=== PATIENT | female | born 1955 | race Caucasian/White ===

== ENCOUNTER 2018-11-17 06:08 | Outpatient (CLI) | payer MEDICARE, MEDICAID ==
[2018-11-17 11:14] LABS: #Basophils 0.1 thou/uL (0.0-0.2); #Eosinphils 0.1 thou/uL (0.0-0.7); #Lymphocytes 1.6 thou/uL (1.20-3.40); #Monocytes 0.4 thou/uL (0.11-0.59); #Neutrophils 3.5 thou/uL (1.40-6.50); %Basophils 1.2 % (0.0-1.0); %Eosinophils 1.9 % (0.0-10.0); %Lymphocytes 28.3 % (21.0-51.0); %Monocytes 7.7 % (0.0-10.0); %Neutrophils 60.9 % (42.0-75.0); Hemoglobin 12.4 g/dL (12.0-16.0); Mean Corpuscular HGB CONC 33.2 g/dL (32.0-36.0); Mean Corpuscular Hemoglobin 34.4 pg (27.0-31.0); Mean Platelet Volume 6.7 fL (7.4-10.4); Platelet Count 233 thou/uL (130-400); RBC Distribution Width 11.7 % (11.5-14.5); White Blood Cell (WBC) Count 5.7 thou/uL (4.8-10.8)
[2018-11-17 11:43] LABS: Anion Gap 9 mmol/L (10-20); BUN (Urea Nitrogen) 7 mg/dL (9.8-20.1); Calc. Creatinine Clearance 0 mL/min (70-130); Calcium 8.8 mg/dL (7.8-10.44); Carbon Dioxide 26 mmol/L (23-31); Chloride 107 mmol/L (98-107); Estimated GFR-MDRD 75; Glucose 97 mg/dL (80-115); Potassium 4.1 mmol/L (3.5-5.1); Sodium 138 mmol/L (136-145)
[2018-11-17 12:04] LABS: PTT 28.2 SEC (22.9-36.1); Prothrombin Time 13.5 SEC (12.0-14.7)
== END 2018-11-17 06:09 | disposition home or self-care (01) ==
LOC: LABBT 06:08
PROVIDERS: ATTEND Surgery
DX: Z01.818 Encounter for other preprocedural examination (principal); M54.12 Radiculopathy, cervical region; M48.02 Spinal stenosis, cervical region
CPT/HCPCS: 80048; 85025; 85610; 85730; 93005; 93010

== ENCOUNTER 2018-11-24 05:40 | Day surgery (SDC) | payer MEDICARE, MEDICAID ==
[2018-11-24] MEDS ORDERED: Sodium Chloride 0.9% 10 ML ONE (06:24)
[2018-11-24] MEDS ORDERED: Thrombin 5000 UNITS/5 ML VIAL ONE (06:24)
[2018-11-24] MEDS ORDERED: CEFAZOLIN 2 GM/50 ML BAG ONE (06:25)
[2018-11-24] MEDS ORDERED: Midazolam HCl 2 mg/2 ml Vial ONE (07:13)
[2018-11-24] MEDS ORDERED: Fentanyl 100 MCG/2 ML VIAL ONE ×3 (07:13→10:21)
[2018-11-24] MEDS ORDERED: Milk Of Magnesia 30 ML UDCUP PO PRN (09:48)
[2018-11-24] MEDS ORDERED: Morphine 2 MG/ML SYRINGE SLOW IVP PRN (09:48)
[2018-11-24] MEDS ORDERED: Bisacodyl 10 MG SUPP PR PRN (09:48)
[2018-11-24] MEDS ORDERED: Fleet Enema 133 ML BOT PR PRN (09:48)
[2018-11-24] MEDS ORDERED: Mag-Al 1200 mg/1200 mg/30 ML UDCUP PO PRN (09:48)
[2018-11-24] MEDS ORDERED: Albuterol Sulfate 2.5 mg/3 ml Neb NEB PRN (09:55)
[2018-11-24] MEDS ORDERED: Lorazepam 1 MG TAB PO PRN (09:55)
[2018-11-24] MEDS ORDERED: CEFAZOLIN/Water 2 GM/20 ML SYRINGE SLOW IVP SCH (10:00)
[2018-11-24] MEDS: Morphine 4 MG/ML VIAL SLOW IVP PRN ×3 (11:34→18:31)
[2018-11-24 11:51] VITALS: BMI 18.3
--- NOTE | 2018-11-24 12:22 | OP ---
DATE OF PROCEDURE: 11/24/2018 OPERATING ROOM: OR 11. WOUND CLASSIFICATION: Type 1 wound. APPRISE COUNSELOR: Reza Powers PA-C PREPROCEDURE DIAGNOSIS: Cervical stenosis with neck and arm pain and cervical radiculopathy. POSTPROCEDURE DIAGNOSIS: Cervical stenosis with neck and arm pain and cervical radiculopathy. PROCEDURES PERFORMED: 1. Anterior C5-C6 and C6-C7 diskectomies for decompression of spinal cord and nerve roots. 2. Placement of interbody spacer following preparation of the endplates, C5-C6 and C6-C7, packed with local bone autograft obtained from same incision allograft at C5-C6 and C6-C7 for arthrodesis. 3. Anterior cervical plate and screw fixation C5, C6, and C7. 4. Use of operative microscope for microdissection. DESCRIPTION OF PROCEDURE: After informed consent was obtained from the patient, the patient was brought to OR 11. Appropriate patient pause and identification were carried out. She was placed under excellent general endotracheal anesthesia and positioned supine on the OR table, and all appropriate points were padded. The cervical spine was kept in neutral position. We identified the anterior C5, C6, and C7 segments and an incision from the right side that would allow for approach to the aforementioned segments. This region was sterilely cleansed, prepared, and draped. After appropriate patient pause and identification, the wound was then opened with a combination of sharp and monopolar and blunt dissection and proceeded lateral to the tracheoesophageal bundle medial to the right carotid sheath, identified the prevertebral layer of deep cervical fascia and the longus colli muscles were swept laterally. Retraction was placed, distraction at C5-C6 then occurred following localization. We then brought the microscope in for microdissection diskectomy at C5-C6 was performed with excellent decompression of the common dural tube and bilateral C6 nerve roots. We then released distraction following the placement of interbody spacer packed with graft for arthrodesis. We then turned our attention to distraction at C6-C7. Diskectomy at C6-C7 was performed with excellent decompression of the common dural tube and the C7 nerve roots. Copious irrigation occurred throughout and again maximizing hemostasis. We placed an interbody spacer in appropriate dimension, packed with graft for arthrodesis. The wound was then copiously irrigated and the microscope was removed in plate and screw fixation at C5, C6, and C7. Final tightening then occurred. Satisfied with our construct, we then placed a drain and the wound was then closed in anatomic layers. The patient then emerged from anesthesia. Job ID: [id number]
[2018-11-24] MEDS: HYDROcodone/Acetaminophen 10/325 mg Tablet PO PRN ×2 (12:59→21:05)
[2018-11-24] MEDS: Methocarbamol 500 MG TAB PO SCH ×3 (13:50→20:08)
[2018-11-24] MEDS ORDERED: CEFAZOLIN 2 GM in Sodium Chloride 0.9% 100 ML IVPB SCH (14:00)
[2018-11-24] MEDS: CEFAZOLIN 2 GM/50 ML-DEXTROSE 2 GM in Premix Bag 1 BAG IVPB SCH ×2 (14:50→22:04)
[2018-11-24] MEDS: traMADol HCl 50 MG TAB PO PRN (15:54)
[2018-11-24] MEDS: Sodium Chloride 0.9% 1,000 ML IV SCH (18:23)
[2018-11-24] MEDS ORDERED: Glycopyrrolate 0.2 MG/ML 5 ML SYRINGE ONE (19:06)
[2018-11-24] MEDS ORDERED: Ondansetron PF 4 MG/2 ML Vial ONE (19:06)
[2018-11-24] MEDS ORDERED: PHENYLEPHRINE-NS 100 MCG/ML 10 ML SYRINGE ONE (19:06)
[2018-11-24] MEDS ORDERED: PROPOFOL 200 MG/20 ML VIAL ONE (19:06)
[2018-11-24] MEDS ORDERED: Losartan 25 MG TAB PO SCH (21:00)
[2018-11-24] MEDS ORDERED: Propranolol 40 MG TAB PO SCH (21:00)
[2018-11-24] MEDS ORDERED: Atorvastatin Calcium 10 MG TAB PO SCH (21:00)
[2018-11-24] MEDS ORDERED: traZODone HCl 150 MG TAB PO SCH (21:00)
[2018-11-25] MEDS: Sodium Chloride 0.9% 1,000 ML IV SCH (00:26)
[2018-11-25] MEDS: Morphine 4 MG/ML VIAL SLOW IVP PRN ×2 (01:59→08:16)
[2018-11-25] MEDS: traMADol HCl 50 MG TAB PO PRN (02:38)
[2018-11-25] MEDS: HYDROcodone/Acetaminophen 10/325 mg Tablet PO PRN ×2 (03:09→10:07)
[2018-11-25] MEDS: CEFAZOLIN 2 GM/50 ML-DEXTROSE 2 GM in Premix Bag 1 BAG IVPB SCH (05:58)
[2018-11-25 08:11] VITALS: BP 199/79; TEMP 97.7
[2018-11-25] MEDS ORDERED: Oxybutynin 5 MG TAB PO SCH (09:00)
[2018-11-25] MEDS ORDERED: Amlodipine 5 MG TAB PO SCH (09:00)
[2018-11-25] MEDS ORDERED: Citalopram 20 MG TAB PO SCH (21:00)
--- NOTE | 2018-11-26 05:04 | DIS ---
DATE OF ADMISSION: 11/24/2018 DATE OF DISCHARGE: 11/25/2018 DISCHARGE DIAGNOSES: Include: 1. Cervical radiculopathy with cervical spinal stenosis. 2. Tobacco abuse. 3. Hypertension. 4. Chronic pain. HOSPITAL COURSE: Ms. Farah was admitted to undergo C5-C7 ACDF with Dr. Moe. Her surgery was without complication and a drain was placed. She required one overnight stay for pain control, as well as monitoring of her drain output. The next morning, she had some pain into the back of the neck and some arm achiness, but states that preoperative arm pain she experienced had completely resolved. She met criteria including appropriate drain output and this was removed. Again, at the time of discharge, she had good strength in the bilateral upper extremities and was walking to the bathroom. Appropriate patient education and followups were provided. The patient and her daughter certainly understood to call the office with questions or concerns prior to her next followup appointment. Job ID: [id number]
== END 2018-11-25 10:40 | disposition home or self-care (01) ==
LOC: SDC 05:40 → SURG A 09:48 → SDC 11-25 10:40
PROVIDERS: ATTEND Surgery
PROC: 0RG20A0 Fusion of 2 or more Cervical Vertebral Joints with Interbody Fusion Device, Anterior Approach, Anterior Column, Open Approach (ICD-10-PCS; principal; 2018-11-24)
PROC: 0RG2070 Fusion of 2 or more Cervical Vertebral Joints with Autologous Tissue Substitute, Anterior Approach, Anterior Column, Open Approach (ICD-10-PCS; 2018-11-24)
PROC: 0RT30ZZ Resection of Cervical Vertebral Disc, Open Approach (ICD-10-PCS; 2018-11-24)
DX: M48.02 Spinal stenosis, cervical region (principal); M54.12 Radiculopathy, cervical region; F17.210 Nicotine dependence, cigarettes, uncomplicated; M79.7 Fibromyalgia; G47.00 Insomnia, unspecified; I10 Essential (primary) hypertension; Z79.82 Long term (current) use of aspirin; Z79.899 Other long term (current) drug therapy; Z88.5 Allergy status to narcotic agent; Z88.8 Allergy status to other drugs, medicaments and biological substances
CPT/HCPCS: 20930; 20936; 22551; 22552; 22845; 22853 ×2; 76000; 96374; C1713 ×2; C1776; J2250; J2270; J2405; J2704; J3010; J3370; J3490; J7620

== ENCOUNTER 2019-01-09 12:58 | Outpatient (CLI) | payer MEDICARE, MEDICAID ==
--- NOTE | 2019-01-09 15:29 | RAD ---
CERVICAL SPINE THREE VIEWS: 01/09/2019 HISTORY: Follow up spinal fusion. COMPARISON: 07/12/2018 FINDINGS: C1 to the cervicothoracic junction is seen on the lateral view. There are post surgical changes rela yumi to anterior cervical fusion, with an anterior plate and screws transfixing the C5-C6 and C6-C7 le vels, with intradiskal prostheses noted. No definite hardware complication is appreciated. Minimal degenerative changes are present at the C7-T1 level, with minimal osteophytes and minimal narrowing o f the intervertebral disk space. No fracture or subluxation is appreciated. The prevertebral soft t issues appear to be within normal limits. No other interval change. IMPRESSION: Interval post surgical changes related to anterior cervical fusion of the C5 through the C7 levels. POS: LOREE
== END 2019-01-09 12:59 | disposition home or self-care (01) ==
LOC: TBSIIMAG 12:58
PROVIDERS: ATTEND Surgery
DX: M50.10 Cervical disc disorder with radiculopathy, unspecified cervical region (principal); M48.12 Ankylosing hyperostosis [Forestier], cervical region; M54.2 Cervicalgia; Z98.1 Arthrodesis status
CPT/HCPCS: 72040

== ENCOUNTER 2020-07-30 07:48 | Outpatient (CLI) | payer MEDICARE, MEDICAID, OTHER ==
[2020-07-30 11:03] LABS: Mean Corpuscular Hemoglobin 32.6 pg (27.0-31.0); Mean Corpuscular Volume 98.8 fL (78.0-98.0); Mean Platelet Volume 7.4 fL (7.4-10.4); Platelet Count 234 thou/uL (130-400); RBC Distribution Width 12.2 % (11.5-14.5); White Blood Cell (WBC) Count 8.5 thou/uL (4.8-10.8)
[2020-07-30 11:15] LABS: Anion Gap 13 mmol/L (10-20); BUN (Urea Nitrogen) 14 mg/dL (9.8-20.1); Calc. Creatinine Clearance 0 mL/min (70-130); Calcium 8.5 mg/dL (7.8-10.44); Carbon Dioxide 24 mmol/L (23-31); Chloride 106 mmol/L (98-107); Estimated GFR-MDRD 60; Glucose 89 mg/dL (80-115); Potassium 3.8 mmol/L (3.5-5.1); Sodium 139 mmol/L (136-145)
[2020-07-30 12:08] LABS: INR-International Normal Ratio 0.9; PTT 26.3 sec (22.9-36.1); Prothrombin Time 12.5 sec (12.0-14.7)
[2020-07-30 18:05] LABS: SARS-CoV-2 MS2 Positive; SARS-CoV-2 N Gene Negative; SARS-CoV-2 S Gene Negative; SARS-CoV-2 by NAA Not Detected (NotDetected); SARS-CoV-2 orf1ab Negative
== END 2020-07-30 07:49 | disposition home or self-care (01) ==
LOC: LABBT 07:48
PROVIDERS: ATTEND Surgery
DX: Z01.812 Encounter for preprocedural laboratory examination (principal); M48.061 Spinal stenosis, lumbar region without neurogenic claudication; M54.16 Radiculopathy, lumbar region; Z20.828 Contact with and (suspected) exposure to other viral communicable diseases
CPT/HCPCS: 80048; 85027; 85610; 85730; U0003; 87635; 93005; 93010

== ENCOUNTER 2020-09-27 08:54 | Outpatient (CLI) | payer MEDICARE, MEDICAID ==
--- NOTE | 2020-09-27 10:08 | RAD ---
Esophagram air contrast HISTORY: Dysphagia. FINDINGS: Air contrast and single column barium evaluation was performed. No obstruction or irregular ity of the upper esophagus at the level of prior cervical spine surgery. No significant hiatal hernia. There was diminished primary and secondary peristalsis. Prominent nonpropulsive tertiary type contrac tions of the esophagus were seen. Moderate amount of gastroesophageal reflux. A 12 mm barium tablet lodged at the lower esophageal sphincter for approximately 10 minutes. IMPRESSION : Narrowing at the lower esophageal sphincter, resulting in holdup of a 12 mm barium tablet. Gastroesophageal reflux. Prominent presbyesophagus with tertiary contractions.
== END 2020-09-27 08:55 | disposition home or self-care (01) ==
LOC: RAD 08:54
PROVIDERS: ATTEND Specialist
DX: R13.10 Dysphagia, unspecified (principal); K22.2 Esophageal obstruction; K21.9 Gastro-esophageal reflux disease without esophagitis; K22.8 Other specified diseases of esophagus
CPT/HCPCS: 74220

== ENCOUNTER 2021-08-07 07:43 | Outpatient (CLI) | payer MEDICARE, MEDICAID | END 2021-08-07 07:44 | disposition home or self-care (01) | LOC: PET 07:43 | PROVIDERS: ATTEND Internal Medicine Pulmonary Disease | DX: R91.1 Solitary pulmonary nodule (principal) | CPT/HCPCS: 78815; A9552 ==

== ENCOUNTER 2022-01-05 06:56 | Day surgery (SDC) | payer MEDICARE, OTHER ==
[2021-12-30 12:17] VITALS: BMI 15.0
[2022-01-05 08:15] LABS: Hemoglobin 12.6 g/dL (12.0-16.0)
[2022-01-05 08:40] LABS: Chloride 104 mmol/L (98-107); Potassium 3.6 mmol/L (3.5-5.1); Sodium 139 mmol/L (136-145)
[2022-01-05 08:41] LABS: Calcium 8.8 mg/dL (7.8-10.44); Glucose 99 mg/dL (80-115)
[2022-01-05 08:43] LABS: Anion Gap 15 mmol/L (10-20); Carbon Dioxide 24 mmol/L (23-31)
[2022-01-05 08:44] LABS: Calc. Creatinine Clearance 49 mL/min (70-130)
[2022-01-05 08:45] LABS: BUN (Urea Nitrogen) 15 mg/dL (9.8-20.1)
[2022-01-05] MEDS ORDERED: Fentanyl 250 MCG/5 ML VIAL ONE ×2 (09:21→12:00)
[2022-01-05] MEDS ORDERED: Bupivacaine 0.25% HCL 30 ML VIAL ONE (09:27)
[2022-01-05] MEDS ORDERED: Bacitracin Zinc Ointment 30 gm TUBE ONE (09:27)
[2022-01-05] MEDS ORDERED: Xylocaine 1% w/ Epi 1:100K 10 ML VIAL ONE (09:27)
[2022-01-05] MEDS ORDERED: Neomycin-Polymyxin 1 ML AMP ONE (09:27)
[2022-01-05] MEDS ORDERED: EPINEPHrine 1 MG/ML AMP ONE (09:27)
[2022-01-05] MEDS ORDERED: Phenylephrine 10 MG/ML VIAL ONE (09:34)
[2022-01-05] MEDS ORDERED: Ondansetron PF 4 MG/2 ML Vial ONE ×2 (09:50→12:43)
[2022-01-05] MEDS ORDERED: Lidocaine 1% PF 5 ML VIAL ONE (09:50)
[2022-01-05] MEDS ORDERED: ePHEDrine 50 MG/ML VIAL ONE (09:50)
[2022-01-05] MEDS ORDERED: Glycopyrrolate 0.2 MG/ML 5 ML SYRINGE ONE (09:50)
[2022-01-05] MEDS ORDERED: Dexamethasone 20 MG/5 ML VIAL ONE (09:50)
[2022-01-05] MEDS ORDERED: Rocuronium Bromide 10 MG/ML (10ML VIAL) ONE (09:50)
[2022-01-05] MEDS ORDERED: PROPOFOL 200 MG/20 ML VIAL ONE (09:50)
[2022-01-05] MEDS ORDERED: HYDROmorphone 2 MG/ML VIAL SLOW IVP PRN (11:49)
[2022-01-05] MEDS ORDERED: Ondansetron HCl/PF 4 MG/2 ML Vial IVP PRN (11:49)
[2022-01-05] MEDS ORDERED: Promethazine HCl 25 MG/ML VIAL IVPB PRN (11:49)
[2022-01-05] MEDS ORDERED: Promethazine HCl 25 MG/ML VIAL IM PRN (11:49)
[2022-01-05] MEDS ORDERED: Sodium Chloride 0.9% 10 ML ONE (12:44)
== END 2022-01-05 12:55 | disposition home or self-care (01) ==
LOC: SDC 06:56
PROVIDERS: ATTEND Otolaryngology Otology & Neurotology
PROC: 0NB60ZZ Excision of Left Temporal Bone, Open Approach (ICD-10-PCS; principal; 2022-01-05)
DX: H71.92 Unspecified cholesteatoma, left ear (principal); M87.00 Idiopathic aseptic necrosis of unspecified bone; I10 Essential (primary) hypertension; H54.62 Unqualified visual loss, left eye, normal vision right eye; F17.210 Nicotine dependence, cigarettes, uncomplicated; J44.9 Chronic obstructive pulmonary disease, unspecified; E78.00 Pure hypercholesterolemia, unspecified; Z86.73 Personal history of transient ischemic attack (TIA), and cerebral infarction without residual deficits; Z79.82 Long term (current) use of aspirin; Z79.899 Other long term (current) drug therapy; Z88.5 Allergy status to narcotic agent; Z88.8 Allergy status to other drugs, medicaments and biological substances; Z98.1 Arthrodesis status
CPT/HCPCS: 36415; 80048; 85014; 85018; J0171; J1100; J2370; J2405; J2704; J3010; J3490; S0020

== ENCOUNTER 2022-08-14 09:08 | Outpatient (CLI) | payer OTHER ==
[~2022-08-14 09:08] MED LIST: Iopamidol-370 76% 500 ML 1 ML ONE
== END 2022-08-14 09:09 | disposition home or self-care (01) ==
LOC: BICCT 09:08
PROVIDERS: ATTEND Internal Medicine
DX: R91.1 Solitary pulmonary nodule (principal); R59.0 Localized enlarged lymph nodes; R91.8 Other nonspecific abnormal finding of lung field; K31.89 Other diseases of stomach and duodenum
CPT/HCPCS: 71260; 82565; Q9967

== ENCOUNTER 2022-09-15 11:00 | Outpatient (CLI) | payer OTHER | END 2022-09-15 11:01 | disposition home or self-care (01) | LOC: PET 11:00 | PROVIDERS: ATTEND Internal Medicine | DX: R91.1 Solitary pulmonary nodule (principal); C34.32 Malignant neoplasm of lower lobe, left bronchus or lung; C77.1 Secondary and unspecified malignant neoplasm of intrathoracic lymph nodes | CPT/HCPCS: 78815; A9552 ==

== ENCOUNTER 2022-09-21 06:30 | Day surgery (SDC) | payer OTHER, MEDICAID ==
[2022-09-18 11:56] VITALS: BMI 16.1
[2022-09-21] MEDS ORDERED: Albuterol Sulfate 1.25 MG/3 ML NEB ONE (07:14)
[2022-09-21] MEDS ORDERED: Lidocaine 1% MPF 2 ML VIAL ONE (07:15)
[2022-09-21] MEDS ORDERED: fentaNYL Citrate/PF 100 MCG/2 ML SYRINGE ONE ×2 (08:40→09:22)
[2022-09-21] MEDS ORDERED: Midazolam HCl 2 mg/2 ml Vial ONE (08:40)
[2022-09-21] MEDS ORDERED: Lidocaine 2% 6 ML SYR ONE (08:40)
[2022-09-21] MEDS ORDERED: Lidocaine 2% PF 5 ML VIAL ONE (08:55)
[2022-09-21] MEDS ORDERED: Lidocaine 2% PF 5 ML VIAL TOP SCH (09:00)
[2022-09-21] MEDS ORDERED: Dexamethasone 20 MG/5 ML VIAL ONE (09:30)
[2022-09-21] MEDS ORDERED: PROPOFOL 200 MG/20 ML VIAL ONE (09:30)
[2022-09-21] MEDS ORDERED: Rocuronium Bromide 10 MG/ML (10ML VIAL) ONE (09:30)
[2022-09-21] MEDS ORDERED: PHENYLEPHRINE-NS 100 MCG/ML 10 ML SYRINGE ONE (09:30)
[2022-09-21] MEDS ORDERED: Ondansetron PF 4 MG/2 ML Vial ONE (09:30)
[2022-09-21] MEDS ORDERED: NEOSTIGMINE 3 MG/3 ML SYR 3 MG/3 ML SYRINGE ONE (09:30)
[2022-09-21] MEDS ORDERED: Glycopyrrolate 0.2 MG/ML 5 ML SYRINGE ONE (09:30)
[2022-09-21] MEDS ORDERED: SUGAMMADEX SODIUM 200 MG/2 ML VIAL ONE (10:44)
[2022-09-21] MEDS ORDERED: FENTANYL 50 MCG/ML VIAL 50 MCG/ML VIAL ONE (11:37)
== END 2022-09-21 12:38 | disposition home or self-care (01) ==
LOC: SDC 06:30
PROVIDERS: ATTEND Internal Medicine
PROC: 0B9J8ZX Drainage of Left Lower Lung Lobe, Via Natural or Artificial Opening Endoscopic, Diagnostic (ICD-10-PCS; principal; 2022-09-21)
PROC: 0BBJ8ZX Excision of Left Lower Lung Lobe, Via Natural or Artificial Opening Endoscopic, Diagnostic (ICD-10-PCS; 2022-09-21)
PROC: 07974ZX Drainage of Thorax Lymphatic, Percutaneous Endoscopic Approach, Diagnostic (ICD-10-PCS; 2022-09-21)
DX: C7A.1 Malignant poorly differentiated neuroendocrine tumors (principal); R91.1 Solitary pulmonary nodule; I10 Essential (primary) hypertension; M79.7 Fibromyalgia; F17.210 Nicotine dependence, cigarettes, uncomplicated; J44.9 Chronic obstructive pulmonary disease, unspecified; M19.90 Unspecified osteoarthritis, unspecified site; E78.00 Pure hypercholesterolemia, unspecified; K21.9 Gastro-esophageal reflux disease without esophagitis; Z86.73 Personal history of transient ischemic attack (TIA), and cerebral infarction without residual deficits; Z79.82 Long term (current) use of aspirin; Z79.899 Other long term (current) drug therapy; Z88.5 Allergy status to narcotic agent; Z88.6 Allergy status to analgesic agent; Z88.8 Allergy status to other drugs, medicaments and biological substances
CPT/HCPCS: 31624; 31625; 31652; J3010; 88112; 88173; 88305; 88341; 88342; 88360; J1100; J2001; J2250; J2405; J2704; J7620

== ENCOUNTER 2022-10-09 08:50 | Outpatient (CLI) | payer OTHER | END 2022-10-09 08:51 | disposition home or self-care (01) | LOC: SCSMRI 08:50 | PROVIDERS: ATTEND Internal Medicine Hematology & Oncology | DX: M47.26 Other spondylosis with radiculopathy, lumbar region (principal); C34.02 Malignant neoplasm of left main bronchus; Z98.1 Arthrodesis status; I67.82 Cerebral ischemia | CPT/HCPCS: 70553; 72050; 72110 ==

== ENCOUNTER 2022-11-09 10:22 | Inpatient (IN) | payer OTHER, MEDICAID ==
[2022-11-09 11:28] LABS: Hemoglobin 10.8 g/dL (12.0-16.0); Mean Corpuscular HGB CONC 33.1 g/dL (32.0-36.0); Mean Corpuscular Hemoglobin 33.3 pg (27.0-31.0); Mean Platelet Volume 7.7 fL (7.4-10.4); Platelet Count 83 10x3/uL (130-400); RBC Distribution Width 11.4 % (11.5-14.5); Red Blood Cell (RBC) Count 3.23 mill/uL (4.20-5.40); Reflex for Review?? NO; White Blood Cell (WBC) Count 0.4 10x3/uL (4.8-10.8)
[2022-11-09 11:40] LABS: ALT (SGPT) 9 U/L (8-55); AST (SGOT) 11 U/L (5-34); Albumin 3.8 g/dL (3.4-4.8); Alkaline Phosphatase 53 U/L (40-110); Anion Gap 14 mmol/L (10-20); BUN (Urea Nitrogen) 17 mg/dL (9.8-20.1); Bilirubin, Total 0.4 mg/dL (0.2-1.2); Calc. Creatinine Clearance 0 mL/min (70-130); Carbon Dioxide 22 mmol/L (23-31); Chloride 100 mmol/L (98-107); Estimated GFR 73; Globulin 3.4 g/dL (2.4-3.5); Glucose 119 mg/dL (80-115); Lipase 5 U/L (8-78); Protein, Total 7.2 g/dL (5.8-8.1); Sodium 132 mmol/L (136-145)
[2022-11-09] MEDS ORDERED: Ondansetron PF 4 MG/2 ML Vial ONE ×2 (11:41→15:03)
[2022-11-09] MEDS ORDERED: Morphine 4 MG/ML VIAL ONE (11:41)
[2022-11-09] MEDS ORDERED: Cefepime 2 GM VIAL ONE (11:41)
[2022-11-09] MEDS ORDERED: Vancomycin 1 GM/200 ML (FROZEN) BAG ONE (11:41)
[2022-11-09 11:58] LABS: Platelet Morphology Comment Appears Decreased; RBC Morphology Normal
[2022-11-09 12:29] LABS: Bilirubin Negative (Negative); Blood, Urine Negative (Negative); Clarity Clear (Clear); Glucose, Urine (Dipstick) Normal (Negative); Ketone, Urine Negative (Negative); Leukocyte Negative Leu/uL (Negative); Nitrite Negative (Negative); Protein, Urine (Dipstick) Negative (Neg-Trace); Specific Gravity, Urine 1.014 (1.002-1.036); Urobilinogen Normal mg/dL (Less than 2)
[2022-11-09 13:07] LABS: SARS-CoV-2 NAA Rapid Test Not Detected (NotDetected)
[2022-11-09] MEDS ORDERED: Acetaminophen 325 MG TAB PO PRN (13:45)
[2022-11-09] MEDS ORDERED: Albuterol 200 PUFF (6.7GM INHALER) INH PRN (13:51)
[2022-11-09] MEDS ORDERED: Fentanyl 100 MCG/2 ML VIAL ONE (15:03)
[2022-11-09] MEDS ORDERED: Iopamidol-370 76% 500 ML 1 ML ONE (15:31)
[2022-11-09 17:41] VITALS: BMI 17.5
[2022-11-09] MEDS: Nicotine 14 MG PATCH TD SCH (18:29)
[2022-11-09] MEDS ORDERED: HYDROcodone/Acetaminophen 10/325 mg Tablet PO PRN (20:25)
[2022-11-09] MEDS ORDERED: Bisacodyl 10 MG SUPP PR SCH (20:30)
[2022-11-09] MEDS ORDERED: Polyethylene Glycol 3350 17 GM Packet PO SCH (20:30)
[2022-11-09] MEDS: Atorvastatin Calcium 10 MG TAB PO SCH (20:47)
[2022-11-09] MEDS: Diazepam 5 MG TAB PO SCH (20:48)
[2022-11-09] MEDS ORDERED: Cefepime 1 GM in Sodium Chloride 0.9% 100 ML IVPB SCH (23:59)
[2022-11-10] MEDS ORDERED: Cefepime 1 GM in Sodium Chloride 0.9% 100 ML IVPB SCH (02:00)
[2022-11-10 05:55] LABS: Hemoglobin 10.2 g/dL (12.0-16.0); Mean Corpuscular HGB CONC 33.1 g/dL (32.0-36.0); Mean Corpuscular Hemoglobin 33.1 pg (27.0-31.0); Mean Platelet Volume 7.8 fL (7.4-10.4); Platelet Count 105 10x3/uL (130-400); RBC Distribution Width 11.7 % (11.5-14.5); Red Blood Cell (RBC) Count 3.07 mill/uL (4.20-5.40); White Blood Cell (WBC) Count 0.7 10x3/uL (4.8-10.8)
[2022-11-10 07:42] LABS: Band 5 % (5-11); Lymphocytes 55 % (21-51); MDiff Complete? YES; Macrocytosis SLIGHT = 6-15 cells (100X) (0-5/hpf); Monocytes 40 % (0-10); Platelet Morphology Comment Appears Decreased; Polychromasia SLIGHT = 2-3 cells (100X) (0-2/hpf)
[2022-11-10] MEDS ORDERED: Diazepam 5 MG TAB PO SCH (10:15)
[2022-11-10] MEDS: Propranolol 10 MG TAB PO SCH (10:15)
[2022-11-10] MEDS: Oxybutynin 5 MG TAB PO SCH (10:15)
[2022-11-10] MEDS: Amlodipine 5 MG TAB PO SCH (10:15)
[2022-11-10] MEDS: Vancomycin 1 GM in Premix Bag 1 BAG IVPB SCH (10:48)
[2022-11-10] MEDS: Diazepam 5 MG TAB PO SCH ×3 (11:54→20:55)
[2022-11-10] MEDS ORDERED: Promethazine HCl 25 MG in Sodium Chloride 0.9% 50 ML IVPB PRN (12:07)
[2022-11-10] MEDS: HYDROcodone/Acetaminophen 10/325 mg Tablet PO PRN ×2 (15:03→20:55)
[2022-11-10] MEDS: Cefepime 2 GM in Sodium Chloride 0.9% 100 ML IVPB SCH (16:31)
[2022-11-10] MEDS: Gabapentin 300 MG CAP PO SCH ×2 (16:33→20:54)
[2022-11-10] MEDS: Aluminum & Magnesium Hydroxide 60 ML, Lidocaine 2% Viscous Solution 30 ML, diphenhydrAM... SSW SCH ×3 (16:35→22:13)
[2022-11-10] MEDS: Nicotine 14 MG PATCH TD SCH (16:44)
[2022-11-10] MEDS: Losartan 25 MG TAB PO SCH (20:54)
[2022-11-10] MEDS: Atorvastatin Calcium 10 MG TAB PO SCH (20:54)
[2022-11-10] MEDS: Ondansetron PF 4 MG/2 ML Vial IVP SCH (20:55)
[2022-11-10] MEDS ORDERED: Pantoprazole 40 MG VIAL IVP SCH (21:00)
[2022-11-11] MEDS: Cefepime 2 GM in Sodium Chloride 0.9% 100 ML IVPB SCH ×2 (02:28→14:40)
[2022-11-11] MEDS: HYDROcodone/Acetaminophen 10/325 mg Tablet PO PRN ×3 (05:46→18:32)
[2022-11-11 06:19] LABS: Hemoglobin 9.5 g/dL (12.0-16.0); Mean Corpuscular HGB CONC 32.8 g/dL (32.0-36.0); Mean Corpuscular Hemoglobin 33.2 pg (27.0-31.0); Mean Platelet Volume 7.3 fL (7.4-10.4); Platelet Count 139 10x3/uL (130-400); RBC Distribution Width 11.6 % (11.5-14.5); Red Blood Cell (RBC) Count 2.87 mill/uL (4.20-5.40); White Blood Cell (WBC) Count 1.1 10x3/uL (4.8-10.8)
[2022-11-11 06:31] LABS: Anion Gap 10 mmol/L (10-20); BUN (Urea Nitrogen) 14 mg/dL (9.8-20.1); Calc. Creatinine Clearance 57 mL/min (70-130); Calcium 8.3 mg/dL (7.8-10.44); Carbon Dioxide 28 mmol/L (23-31); Chloride 104 mmol/L (98-107); Estimated GFR 90; Glucose 102 mg/dL (80-115); Potassium 3.7 mmol/L (3.5-5.1); Sodium 138 mmol/L (136-145)
[2022-11-11 06:57] LABS: Band 8 % (5-11); Lymphocytes 45 % (21-51); MDiff Complete? YES; Monocytes 27 % (0-10); Myelocyte 1 % (0-0); Neutrophil 19 % (42-75); Nucleated RBC 1 % (0)
[2022-11-11] MEDS: Diazepam 5 MG TAB PO SCH ×3 (10:17→19:40)
[2022-11-11] MEDS: Ondansetron PF 4 MG/2 ML Vial IVP SCH ×2 (10:18→19:40)
[2022-11-11] MEDS: Oxybutynin 5 MG TAB PO SCH (10:18)
[2022-11-11] MEDS: Gabapentin 300 MG CAP PO SCH ×3 (10:18→19:41)
[2022-11-11] MEDS: Amlodipine 5 MG TAB PO SCH (10:19)
[2022-11-11] MEDS: Propranolol 10 MG TAB PO SCH (10:20)
[2022-11-11 11:08] LABS: Vancomycin, Trough 1.6 ug/mL
[2022-11-11] MEDS: Vancomycin 1 GM in Premix Bag 1 BAG IVPB SCH (12:03)
[2022-11-11] MEDS: Aluminum & Magnesium Hydroxide 60 ML, Lidocaine 2% Viscous Solution 30 ML, diphenhydrAM... SSW SCH ×4 (12:12→19:41)
[2022-11-11] MEDS: VANCOMYCIN 1.25 GM/250 ML BAG 1.25 GM in Premix Bag 1 BAG IVPB SCH (12:24)
[2022-11-11] MEDS: Atorvastatin Calcium 10 MG TAB PO SCH (19:41)
[2022-11-11] MEDS: Losartan 25 MG TAB PO SCH (19:41)
[2022-11-12] MEDS: Cefepime 2 GM in Sodium Chloride 0.9% 100 ML IVPB SCH ×2 (01:03→15:07)
[2022-11-12 04:49] LABS: Hemoglobin 9.2 g/dL (12.0-16.0); Mean Corpuscular HGB CONC 33.7 g/dL (32.0-36.0); Mean Corpuscular Hemoglobin 34.1 pg (27.0-31.0); Mean Platelet Volume 6.8 fL (7.4-10.4); Platelet Count 163 10x3/uL (130-400); RBC Distribution Width 11.8 % (11.5-14.5); White Blood Cell (WBC) Count 1.2 10x3/uL (4.8-10.8)
[2022-11-12 05:33] LABS: Band 13 % (5-11); Eosinophils 1 % (0-10); Lymphocytes 60 % (21-51); MDiff Complete? YES; Metamyelocyte 1 % (0-0); Monocytes 9 % (0-10); Neutrophil 16 % (42-75)
[2022-11-12] MEDS: HYDROcodone/Acetaminophen 10/325 mg Tablet PO PRN ×4 (06:59→23:46)
[2022-11-12] MEDS: Amlodipine 5 MG TAB PO SCH (07:49)
[2022-11-12] MEDS: Oxybutynin 5 MG TAB PO SCH (08:02)
[2022-11-12] MEDS: Diazepam 5 MG TAB PO SCH ×3 (08:02→20:00)
[2022-11-12] MEDS: Ondansetron PF 4 MG/2 ML Vial IVP SCH ×2 (08:02→20:01)
[2022-11-12] MEDS: Gabapentin 300 MG CAP PO SCH ×3 (08:02→20:00)
[2022-11-12] MEDS: Nicotine 21 MG PATCH TD SCH (08:03)
[2022-11-12] MEDS: Propranolol 10 MG TAB PO SCH (08:05)
[2022-11-12] MEDS: Aluminum & Magnesium Hydroxide 60 ML, Lidocaine 2% Viscous Solution 30 ML, diphenhydrAM... SSW SCH ×4 (08:05→20:01)
[2022-11-12] MEDS: VANCOMYCIN 1.25 GM/250 ML BAG 1.25 GM in Premix Bag 1 BAG IVPB SCH (12:19)
[2022-11-12] MEDS: Losartan 25 MG TAB PO SCH (19:59)
[2022-11-12] MEDS: Atorvastatin Calcium 10 MG TAB PO SCH (20:00)
[2022-11-13] MEDS: Cefepime 2 GM in Sodium Chloride 0.9% 100 ML IVPB SCH (02:15)
[2022-11-13] MEDS: HYDROcodone/Acetaminophen 10/325 mg Tablet PO PRN ×2 (05:28→12:25)
[2022-11-13 05:49] LABS: #Lymphocytes 0.5 thou/uL (1.20-3.40); #Monocytes 0.3 thou/uL (0.11-0.59); #Neutrophils 0.9 thou/uL (1.40-6.50); %Basophils 0.4 % (0.0-1.0); %Eosinophils 1.7 % (0.0-10.0); %Lymphocytes 28.8 % (21.0-51.0); %Monocytes 14.4 % (0.0-10.0); %Neutrophils 54.7 % (42.0-75.0); Hemoglobin 9.3 g/dL (12.0-16.0); Mean Corpuscular Hemoglobin 33.7 pg (27.0-31.0); Mean Platelet Volume 6.6 fL (7.4-10.4); Platelet Count 193 10x3/uL (130-400); RBC Distribution Width 11.9 % (11.5-14.5); Red Blood Cell (RBC) Count 2.77 mill/uL (4.20-5.40); White Blood Cell (WBC) Count 1.7 10x3/uL (4.8-10.8)
[2022-11-13] MEDS: Diazepam 5 MG TAB PO SCH ×2 (08:39→14:42)
[2022-11-13] MEDS: Ondansetron PF 4 MG/2 ML Vial IVP SCH (08:39)
[2022-11-13] MEDS: Gabapentin 300 MG CAP PO SCH ×2 (08:40→14:41)
[2022-11-13] MEDS: Oxybutynin 5 MG TAB PO SCH (08:41)
[2022-11-13] MEDS: Amlodipine 5 MG TAB PO SCH (08:42)
[2022-11-13] MEDS: Propranolol 10 MG TAB PO SCH (08:42)
[2022-11-13 08:44] VITALS: BP 127/80; TEMP 97.8
[2022-11-13] MEDS: Nicotine 21 MG PATCH TD SCH (08:44)
[2022-11-13] MEDS: Aluminum & Magnesium Hydroxide 60 ML, Lidocaine 2% Viscous Solution 30 ML, diphenhydrAM... SSW SCH ×2 (08:45→12:26)
== END 2022-11-13 15:35 | disposition home or self-care (01) | DRG 809 ==
LOC: ERS 10:22 → ERHOLD 14:03 → MSONC 17:12
PROVIDERS: ADMIT Internal Medicine; ATTEND Emergency Medicine
DX: D70.9 Neutropenia, unspecified (principal); C34.90 Malignant neoplasm of unspecified part of unspecified bronchus or lung; J44.9 Chronic obstructive pulmonary disease, unspecified; I10 Essential (primary) hypertension; I25.10 Atherosclerotic heart disease of native coronary artery without angina pectoris; F41.9 Anxiety disorder, unspecified; F32.A Depression, unspecified; K21.9 Gastro-esophageal reflux disease without esophagitis; F17.210 Nicotine dependence, cigarettes, uncomplicated; Z20.822 Contact with and (suspected) exposure to COVID-19; R50.81 Fever presenting with conditions classified elsewhere; R10.9 Unspecified abdominal pain; E78.5 Hyperlipidemia, unspecified; E78.00 Pure hypercholesterolemia, unspecified; R13.10 Dysphagia, unspecified; R11.0 Nausea; T50.8X5A Adverse effect of diagnostic agents, initial encounter; G89.29 Other chronic pain; Z88.5 Allergy status to narcotic agent; Z88.8 Allergy status to other drugs, medicaments and biological substances; Z86.73 Personal history of transient ischemic attack (TIA), and cerebral infarction without residual deficits; Z79.51 Long term (current) use of inhaled steroids; Z98.890 Other specified postprocedural states; Z79.82 Long term (current) use of aspirin; Z90.710 Acquired absence of both cervix and uterus; Z98.51 Tubal ligation status; Z79.899 Other long term (current) drug therapy
CPT/HCPCS: 36415; 71045; 74177; 77386; 80048; 80053; 80202; 81003; 83605; 83690; 84484; 85025; 87040; 87086; 93005; 96374; 96375; 96376; C9113; J0692; J1642; J2270; J2405; J3010; J3370; J3370-JW; J3490; Q0163; Q9967

== ENCOUNTER 2022-11-24 11:41 | Outpatient (CLI) | payer OTHER, MEDICAID | END 2022-11-24 11:42 | disposition home or self-care (01) | LOC: MRI 11:41 | PROVIDERS: ATTEND Surgery | DX: M47.22 Other spondylosis with radiculopathy, cervical region (principal); M54.50 Low back pain, unspecified; M47.816 Spondylosis without myelopathy or radiculopathy, lumbar region; M47.817 Spondylosis without myelopathy or radiculopathy, lumbosacral region; Z98.1 Arthrodesis status; Z98.890 Other specified postprocedural states | CPT/HCPCS: 72125; 72141; 72148 ==

== ENCOUNTER 2023-01-15 10:15 | Outpatient (CLI) | payer OTHER, MEDICAID | END 2023-01-15 10:16 | disposition home or self-care (01) | LOC: PET 10:15 | PROVIDERS: ATTEND Internal Medicine Hematology & Oncology | DX: C34.02 Malignant neoplasm of left main bronchus (principal) | CPT/HCPCS: 78815; A9552 ==

== ENCOUNTER 2023-03-15 18:31 | Inpatient (IN) | payer OTHER, MEDICAID ==
[2023-03-15] MEDS ORDERED: Promethazine HCl 25 MG in Sodium Chloride 0.9% 50 ML IVPB SCH (19:30)
[2023-03-15 19:41] LABS: #Lymphocytes 0.5 thou/uL (1.20-3.40); #Monocytes 0.2 thou/uL (0.11-0.59); #Neutrophils 4.2 thou/uL (1.40-6.50); %Eosinophils 0.1 % (0.0-10.0); %Lymphocytes 9.9 % (21.0-51.0); %Monocytes 3.3 % (0.0-10.0); %Neutrophils 86.8 % (42.0-75.0); Hemoglobin 14.5 g/dL (12.0-16.0); Mean Corpuscular HGB CONC 33.9 g/dL (32.0-36.0); Mean Corpuscular Hemoglobin 33.6 pg (27.0-31.0); Platelet Count 170 10x3/uL (130-400); RBC Distribution Width 14.2 % (11.5-14.5); Red Blood Cell (RBC) Count 4.31 mill/uL (4.20-5.40); White Blood Cell (WBC) Count 4.9 10x3/uL (4.8-10.8)
[2023-03-15 20:08] LABS: ALT (SGPT) 10 U/L (8-55); AST (SGOT) 20 U/L (5-34); Alkaline Phosphatase 70 U/L (40-110); Anion Gap 16 mmol/L (10-20); BUN (Urea Nitrogen) 12 mg/dL (9.8-20.1); Bilirubin, Total 0.3 mg/dL (0.2-1.2); Calc. Creatinine Clearance 0 mL/min (70-130); Calcium 8.6 mg/dL (7.8-10.44); Carbon Dioxide 19 mmol/L (23-31); Chloride 107 mmol/L (98-107); Estimated GFR 86; Globulin 3.3 g/dL (2.4-3.5); Glucose 122 mg/dL (80-115); Lipase 14 U/L (8-78); Potassium 3.4 mmol/L (3.5-5.1); Protein, Total 7.3 g/dL (5.8-8.1); Sodium 139 mmol/L (136-145)
[2023-03-15 20:42] LABS: CKMB 3.2 ng/mL (0-6.6)
[2023-03-15] MEDS ORDERED: Potassium Chloride 40 MEQ in Premix Bag 1 BAG IVPB SCH (22:00)
[2023-03-15] MEDS ORDERED: Ondansetron PF 4 MG/2 ML Vial IVP PRN (23:15)
[2023-03-15] MEDS ORDERED: Acetaminophen 325 MG TAB PO PRN (23:15)
[2023-03-15] MEDS ORDERED: Ipratropium Bromide 0.06% Nasal Inhaler 15ml EA NARE PRN (23:20)
[2023-03-15] MEDS ORDERED: Albuterol 200 PUFF (6.7GM INHALER) INH PRN (23:21)
[2023-03-15 23:23] LABS: Bilirubin Negative (Negative); Blood, Urine Negative (Negative); Clarity Clear (Clear); Glucose, Urine (Dipstick) Normal (Negative); Ketone, Urine 20 mg/dL (Negative); Leukocyte Negative Leu/uL (Negative); Nitrite Negative (Negative); Protein, Urine (Dipstick) Negative (Neg-Trace); Specific Gravity, Urine 1.012 (1.002-1.036); Urobilinogen Normal mg/dL (Less than 2)
[2023-03-15] MEDS ORDERED: Potassium Chloride 20 MEQ in Premix Bag 1 BAG IVPB SCH (23:30)
[2023-03-15 23:44] LABS: Troponin I 0.849 ng/mL (< 0.028)
[2023-03-16] MEDS ORDERED: Potassium Chloride 20 MEQ/100 ML PREMIX BAG ONE ×2 (00:04→11:21)
[2023-03-16] MEDS ORDERED: Nitroglycerin 0.4mg/Hour PATCH ONE (01:30)
[2023-03-16] MEDS ORDERED: Aspirin Chewable 81 MG TAB PO SCH (01:30)
[2023-03-16] MEDS: Nitroglycerin 2% Ointment 1 INCH/1 GM Packet TOP SCH ×3 (01:34→18:07)
[2023-03-16] MEDS ORDERED: Morphine 4 MG/ML VIAL SLOW IVP SCH ×2 (01:45→17:45)
[2023-03-16] MEDS ORDERED: Morphine 4 MG/ML VIAL ONE (01:46)
[2023-03-16] MEDS ORDERED: Aspirin Chewable 81 MG TAB ONE ×3 (01:54→09:22)
[2023-03-16] MEDS ORDERED: Aspirin 325 mg Enteric Coated Tablet PO SCH (02:00)
[2023-03-16 02:10] LABS: Troponin I 0.973 ng/mL (< 0.028)
[2023-03-16] MEDS ORDERED: Magnesium 2 GM/50 ML(in water) 2 GM in Premix Bag 1 BAG IVPB SCH (02:15)
[2023-03-16] MEDS ORDERED: Magnesium Sulfate 2 GM in Sodium Chloride 0.9% 100 ML IVPB SCH (02:15)
[2023-03-16] MEDS ORDERED: Magnesium 2 GM/50 ML BAG (IN WATER) ONE (03:05)
[2023-03-16] MEDS: Sodium Chloride 0.9% 1,000 ML IV SCH (03:16)
[2023-03-16] MEDS ORDERED: Ondansetron PF 4 MG/2 ML Vial ONE ×2 (04:00→08:30)
[2023-03-16 05:13] LABS: #Lymphocytes 0.6 thou/uL (1.20-3.40); #Monocytes 0.2 thou/uL (0.11-0.59); #Neutrophils 4.1 thou/uL (1.40-6.50); %Basophils 0.3 % (0.0-1.0); %Lymphocytes 12.2 % (21.0-51.0); %Monocytes 4.7 % (0.0-10.0); %Neutrophils 82.8 % (42.0-75.0); Hemoglobin 13.9 g/dL (12.0-16.0); Mean Corpuscular HGB CONC 33.4 g/dL (32.0-36.0); Mean Corpuscular Hemoglobin 33.8 pg (27.0-31.0); Mean Platelet Volume 7.4 fL (7.4-10.4); Platelet Count 167 10x3/uL (130-400); RBC Distribution Width 14.5 % (11.5-14.5); White Blood Cell (WBC) Count 4.9 10x3/uL (4.8-10.8)
[2023-03-16 05:14] LABS: Anion Gap 16 mmol/L (10-20); BUN (Urea Nitrogen) 10 mg/dL (9.8-20.1); Calc. Creatinine Clearance 52 mL/min (70-130); Calcium 8.8 mg/dL (7.8-10.44); Carbon Dioxide 20 mmol/L (23-31); Cardiac Risk 1.8 (Less than 4.5); Chloride 104 mmol/L (98-107); Cholesterol 101 mg/dl (< 200 Desired); Estimated GFR 86; Glucose 130 mg/dL (80-115); HDL Cholesterol 56 mg/dL (>60 Neg Risk); LDL Cholesterol, Calculated 34 mg/dL; Magnesium 2.4 mg/dL (1.6-2.6); Potassium 3.3 mmol/L (3.5-5.1); Sodium 137 mmol/L (136-145); Triglycerides 57 mg/dL (Less than 150)
[2023-03-16 05:24] LABS: Troponin I 1.046 ng/mL (< 0.028)
[2023-03-16] MEDS ORDERED: hydrALAZINE 20 MG/ML VIAL SLOW IVP PRN (07:48)
[2023-03-16] MEDS ORDERED: Potassium Bicarbonate/Cit Ac 25 MEQ TAB PO SCH (08:00)
[2023-03-16] MEDS: Amlodipine 5 MG TAB PO SCH (08:11)
[2023-03-16] MEDS: Ondansetron PF 4 MG/2 ML Vial IVP PRN ×2 (08:30→21:29)
[2023-03-16] MEDS ORDERED: Pantoprazole 40 MG VIAL ONE (09:22)
[2023-03-16] MEDS ORDERED: Thiamine 100 MG TAB ONE (09:33)
[2023-03-16] MEDS: Aspirin 81 mg Enteric Coated Tablet PO SCH (09:40)
[2023-03-16] MEDS: Pantoprazole 40 MG VIAL IVP SCH (09:41)
[2023-03-16] MEDS ORDERED: Potassium Chloride 20 MEQ in Premix Bag 1 BAG IVPB SCH ×2 (11:15→22:00)
[2023-03-16] MEDS ORDERED: HYDROcodone/Acetaminophen 5/325 mg Tablet ONE (11:21)
[2023-03-16] MEDS: HYDROcodone/Acetaminophen 10/325 mg Tablet PO PRN ×2 (11:31→21:25)
[2023-03-16] MEDS: Propranolol 40 MG TAB PO SCH (21:24)
[2023-03-16] MEDS: Losartan 25 MG TAB PO SCH (21:25)
[2023-03-16] MEDS: Atorvastatin Calcium 40 MG TAB PO SCH (21:25)
[2023-03-17] MEDS: Sodium Chloride 0.9% 1,000 ML IV SCH (01:29)
[2023-03-17] MEDS: Ondansetron PF 4 MG/2 ML Vial IVP PRN (01:29)
[2023-03-17] MEDS: Nitroglycerin 2% Ointment 1 INCH/1 GM Packet TOP SCH ×3 (01:42→19:32)
[2023-03-17] MEDS ORDERED: fentaNYL 75 mcg/hour Patch TD SCH ×2 (02:00→09:00)
[2023-03-17] MEDS: Morphine 4 MG/ML VIAL SLOW IVP PRN ×2 (02:13→09:59)
[2023-03-17] MEDS ORDERED: Promethazine HCl 12.5 MG in Sodium Chloride 0.9% 50 ML IVPB SCH (02:15)
[2023-03-17 05:15] LABS: #Lymphocytes 0.7 thou/uL (1.20-3.40); #Monocytes 0.3 thou/uL (0.11-0.59); #Neutrophils 4.8 thou/uL (1.40-6.50); %Basophils 0.1 % (0.0-1.0); %Eosinophils 0.2 % (0.0-10.0); %Lymphocytes 11.5 % (21.0-51.0); %Monocytes 5.3 % (0.0-10.0); %Neutrophils 82.9 % (42.0-75.0); Hemoglobin 13.7 g/dL (12.0-16.0); Mean Corpuscular HGB CONC 33.8 g/dL (32.0-36.0); Mean Corpuscular Hemoglobin 33.3 pg (27.0-31.0); Mean Corpuscular Volume 98.7 fl (78.0-98.0); Mean Platelet Volume 7.2 fL (7.4-10.4); Platelet Count 191 10x3/uL (130-400); RBC Distribution Width 14.5 % (11.5-14.5); White Blood Cell (WBC) Count 5.8 10x3/uL (4.8-10.8)
[2023-03-17 05:30] LABS: Anion Gap 15 mmol/L (10-20); BUN (Urea Nitrogen) 20 mg/dL (9.8-20.1); Calc. Creatinine Clearance 51 mL/min (70-130); Calcium 8.8 mg/dL (7.8-10.44); Carbon Dioxide 22 mmol/L (23-31); Chloride 105 mmol/L (98-107); Estimated GFR 83; Glucose 113 mg/dL (80-115); Magnesium 1.9 mg/dL (1.6-2.6); Potassium 3.7 mmol/L (3.5-5.1); Sodium 138 mmol/L (136-145)
[2023-03-17] MEDS ORDERED: Promethazine HCl 12.5 MG in Sodium Chloride 0.9% 50 ML IVPB PRN (07:38)
[2023-03-17] MEDS: Polyethylene Glycol 3350 17 GM Packet PO SCH (09:52)
[2023-03-17] MEDS: Aspirin 81 mg Enteric Coated Tablet PO SCH ×2 (09:53→09:58)
[2023-03-17] MEDS: Pantoprazole 40 MG VIAL IVP SCH (09:58)
[2023-03-17] MEDS: Amlodipine 5 MG TAB PO SCH (09:59)
[2023-03-17] MEDS: Ondansetron HCl/PF 8 MG in Sodium Chloride 0.9% 50 ML IVPB SCH ×2 (10:01→21:54)
[2023-03-17 12:18] VITALS: BMI 16.6
[2023-03-17 13:14] LABS: Campy jejuni + coli by PCR Negative (Negative); STEC Shiga Toxin 1+2 Negative (Negative); Salmonella spp. by PCR Negative (Negative); Shigella spp + EIEC by PCR Negative (Negative)
[2023-03-17] MEDS: Promethazine HCl 12.5 MG in Sodium Chloride 0.9% 50 ML IVPB SCH ×2 (15:40→21:53)
[2023-03-17] MEDS: Losartan 25 MG TAB PO SCH (21:52)
[2023-03-17] MEDS: Propranolol 40 MG TAB PO SCH (21:52)
[2023-03-17] MEDS: Atorvastatin Calcium 40 MG TAB PO SCH (21:53)
[2023-03-18] MEDS: Nitroglycerin 2% Ointment 1 INCH/1 GM Packet TOP SCH ×3 (01:00→17:07)
[2023-03-18] MEDS: Sodium Chloride 0.9% 1,000 ML IV SCH ×3 (06:19→23:52)
[2023-03-18 06:46] LABS: #Lymphocytes 0.9 thou/uL (1.20-3.40); #Monocytes 0.3 thou/uL (0.11-0.59); #Neutrophils 2.2 thou/uL (1.40-6.50); %Basophils 0.5 % (0.0-1.0); %Eosinophils 0.7 % (0.0-10.0); %Lymphocytes 25.3 % (21.0-51.0); %Monocytes 9.7 % (0.0-10.0); %Neutrophils 63.8 % (42.0-75.0); Hemoglobin 12.8 g/dL (12.0-16.0); Mean Corpuscular HGB CONC 34.2 g/dL (32.0-36.0); Mean Corpuscular Hemoglobin 34.3 pg (27.0-31.0); Mean Platelet Volume 7.4 fL (7.4-10.4); Platelet Count 148 10x3/uL (130-400); RBC Distribution Width 14.1 % (11.5-14.5); Red Blood Cell (RBC) Count 3.74 mill/uL (4.20-5.40); White Blood Cell (WBC) Count 3.4 10x3/uL (4.8-10.8)
[2023-03-18 07:04] LABS: Anion Gap 14 mmol/L (10-20); BUN (Urea Nitrogen) 24 mg/dL (9.8-20.1); Calc. Creatinine Clearance 50 mL/min (70-130); Calcium 8.4 mg/dL (7.8-10.44); Carbon Dioxide 21 mmol/L (23-31); Chloride 108 mmol/L (98-107); Estimated GFR 81; Glucose 68 mg/dL (80-115); Magnesium 1.9 mg/dL (1.6-2.6); Potassium 3.7 mmol/L (3.5-5.1); Sodium 139 mmol/L (136-145)
[2023-03-18] MEDS: Aspirin 81 mg Enteric Coated Tablet PO SCH (10:17)
[2023-03-18] MEDS: Amlodipine 5 MG TAB PO SCH (10:17)
[2023-03-18] MEDS: Polyethylene Glycol 3350 17 GM Packet PO SCH (10:19)
[2023-03-18] MEDS: Pantoprazole 40 MG VIAL IVP SCH (10:19)
[2023-03-18] MEDS: Ondansetron HCl/PF 8 MG in Sodium Chloride 0.9% 50 ML IVPB SCH ×2 (10:28→20:08)
[2023-03-18] MEDS: Promethazine HCl 12.5 MG in Sodium Chloride 0.9% 50 ML IVPB SCH ×3 (10:28→20:08)
[2023-03-18] MEDS: HYDROcodone/Acetaminophen 10/325 mg Tablet PO PRN (10:42)
[2023-03-18 17:36] LABS: Amphetamine Not Detected (NotDetected); Barbiturates Screen Not Detected (NotDetected); Benzodiazepine Screen Detected (NotDetected); Cocaine Metabolite Screen Not Detected (NotDetected); Methadone Not Detected (NotDetected); Methamphetamine Not Detected (NotDetected); Opiate Screen Detected (NotDetected); Oxycodone Screen Not Detected (NotDetected); Phencyclidine (PCP) Not Detected (NotDetected); THC/Cannabinoid Screen Detected (NotDetected); Tricyclic Screen Not Detected (NotDetected)
[2023-03-18] MEDS: Sacubitril 24MG/Valsartan 26 MG TAB PO SCH (20:07)
[2023-03-18] MEDS: Propranolol 40 MG TAB PO SCH (20:07)
[2023-03-18] MEDS: Atorvastatin Calcium 40 MG TAB PO SCH (20:07)
[2023-03-19] MEDS: Nitroglycerin 2% Ointment 1 INCH/1 GM Packet TOP SCH ×2 (01:57→10:11)
[2023-03-19] MEDS: Polyethylene Glycol 3350 17 GM Packet PO SCH (10:11)
[2023-03-19] MEDS: Amlodipine 5 MG TAB PO SCH (10:11)
[2023-03-19] MEDS: Sacubitril 24MG/Valsartan 26 MG TAB PO SCH (10:11)
[2023-03-19] MEDS: Aspirin 81 mg Enteric Coated Tablet PO SCH (10:11)
[2023-03-19] MEDS: Promethazine HCl 12.5 MG in Sodium Chloride 0.9% 50 ML IVPB SCH ×2 (10:12→14:18)
[2023-03-19] MEDS: Ondansetron HCl/PF 8 MG in Sodium Chloride 0.9% 50 ML IVPB SCH (10:13)
[2023-03-19] MEDS: HYDROcodone/Acetaminophen 10/325 mg Tablet PO PRN (10:16)
[2023-03-19 16:13] VITALS: BP 113/73; TEMP 96.9
== END 2023-03-19 17:00 | disposition home or self-care (01) | DRG 393 ==
LOC: ERS 18:31 → ERHOLD 22:20 → OBSVTOIN 23:19 → 2NO 03-16 15:04
PROVIDERS: ADMIT Internal Medicine; ATTEND Internal Medicine
DX: K55.1 Chronic vascular disorders of intestine (principal); I21.4 Non-ST elevation (NSTEMI) myocardial infarction; I77.4 Celiac artery compression syndrome; E44.0 Moderate protein-calorie malnutrition; Z68.1 Body mass index [BMI] 19.9 or less, adult; I42.9 Cardiomyopathy, unspecified; Z66 Do not resuscitate; J44.9 Chronic obstructive pulmonary disease, unspecified; I10 Essential (primary) hypertension; R62.7 Adult failure to thrive; F41.9 Anxiety disorder, unspecified; F32.A Depression, unspecified; E87.6 Hypokalemia; F17.210 Nicotine dependence, cigarettes, uncomplicated; Z88.5 Allergy status to narcotic agent; Z85.118 Personal history of other malignant neoplasm of bronchus and lung; Z88.8 Allergy status to other drugs, medicaments and biological substances; Z79.899 Other long term (current) drug therapy; Z79.82 Long term (current) use of aspirin; Z98.51 Tubal ligation status; Z90.710 Acquired absence of both cervix and uterus; Z82.49 Family history of ischemic heart disease and other diseases of the circulatory system; Z82.3 Family history of stroke; Z85.841 Personal history of malignant neoplasm of brain; Z92.3 Personal history of irradiation; Z92.21 Personal history of antineoplastic chemotherapy
CPT/HCPCS: 71045; 71275; 74174; 80048; 80053; 80061; 80306; 81003; 82553; 83036; 83605; 83690; 83735; 83880; 84484; 85025; 87324; 87449; 87505; 93005; 93010; 93306; C9113; J1650; J2270; J2405; J2550; J3475; J3480; J7050

== ENCOUNTER 2023-03-25 07:40 | Outpatient (CLI) | payer OTHER, MEDICAID ==
[2023-03-25] MEDS ORDERED: Iopamidol 370 76% 100 ML VIAL ONE (10:13)
== END 2023-03-25 07:41 | disposition home or self-care (01) ==
LOC: BICCT 07:40
PROVIDERS: ATTEND Internal Medicine Hematology & Oncology
DX: C34.02 Malignant neoplasm of left main bronchus (principal); J98.4 Other disorders of lung
CPT/HCPCS: 71260

== ENCOUNTER 2023-09-08 12:30 | Outpatient (CLI) | payer OTHER, MEDICAID | END 2023-09-08 12:31 | disposition home or self-care (01) | LOC: PET 12:30 | PROVIDERS: ATTEND Internal Medicine Hematology & Oncology | DX: C34.02 Malignant neoplasm of left main bronchus (principal); R91.8 Other nonspecific abnormal finding of lung field; J98.09 Other diseases of bronchus, not elsewhere classified | CPT/HCPCS: 78815; A9552 ==

== ENCOUNTER 2023-12-22 08:51 | Outpatient (CLI) | payer OTHER, MEDICAID | END 2023-12-22 08:52 | disposition home or self-care (01) | LOC: SCSMRI 08:51 | PROVIDERS: ATTEND Radiology Radiation Oncology | DX: C79.31 Secondary malignant neoplasm of brain (principal); C34.32 Malignant neoplasm of lower lobe, left bronchus or lung; R90.89 Other abnormal findings on diagnostic imaging of central nervous system | CPT/HCPCS: 70553 ==

== ENCOUNTER 2024-02-11 08:45 | Outpatient (CLI) | payer OTHER, MEDICAID | END 2024-02-11 08:46 | disposition home or self-care (01) | LOC: PET 08:45 | PROVIDERS: ATTEND Internal Medicine Hematology & Oncology | DX: C34.90 Malignant neoplasm of unspecified part of unspecified bronchus or lung (principal); J98.4 Other disorders of lung; J91.0 Malignant pleural effusion | CPT/HCPCS: 78815; A9552 ==

== ENCOUNTER 2024-04-04 11:29 | Outpatient (CLI) | payer OTHER, MEDICAID | END 2024-04-04 11:30 | disposition home or self-care (01) | LOC: SCSMRI 11:29 | PROVIDERS: ATTEND Radiology Radiation Oncology | DX: C79.31 Secondary malignant neoplasm of brain (principal); C34.32 Malignant neoplasm of lower lobe, left bronchus or lung; I63.9 Cerebral infarction, unspecified | CPT/HCPCS: 70553 ==

== ENCOUNTER 2024-04-11 07:40 | Outpatient (CLI) | payer OTHER, MEDICAID ==
[2024-04-11] MEDS ORDERED: Iopamidol 370 76% 100 ML VIAL ONE (11:13)
== END 2024-04-11 07:41 | disposition home or self-care (01) ==
LOC: CT 07:40
PROVIDERS: ATTEND Internal Medicine Hematology & Oncology
DX: C34.02 Malignant neoplasm of left main bronchus (principal); J98.11 Atelectasis; J90 Pleural effusion, not elsewhere classified; J81.1 Chronic pulmonary edema; J18.1 Lobar pneumonia, unspecified organism
CPT/HCPCS: 71260; 80053; 82248; 82565; 83615; 84100; 84436; 84443; 84550; 85025; Q9967

== ENCOUNTER 2024-05-05 12:52 | Inpatient (IN) | payer OTHER, MEDICAID ==
[~2024-05-05 12:52] MED LIST changes: -Iopamidol-370 76% 500 ML 1 ML ONE; +Iopamidol-370 76% 500 ML MDV (1 ML CHARGE) ONE
[2024-05-05] MEDS ORDERED: Cefepime 2 GM VIAL ONE (13:54)
[2024-05-05] MEDS ORDERED: Metoprolol Tartrate 5 MG (5 mL) VIAL ONE (13:54)
[2024-05-05] MEDS ORDERED: Acetaminophen 325 MG (10.15 ML) UDCUP ONE (13:54)
[2024-05-05] MEDS ORDERED: Sodium Chloride 0.9% 100 ML ONE (13:54)
[2024-05-05 15:36] LABS: Actual Bicarbonate (HCO3v) 21.3 mEq/L (22-28); Base Excess -2.1 mEq/L (-2.0 to +3.0); Calcium, Ionized (venous) 0.97 mmol/L (1.16-1.32); Chloride (VBG) 103 mmol/L (98-106); Hematocrit-VBG 39 % (36.0-47.0); Hemoglobin (Hb) 13.4 g/dL (11.7-16.1); Potassium (VBG) 3.05 mmol/L (3.70-5.30); Sodium 138 mmol/L (133-146); pH (venous) 7.434 (7.32-7.43)
[2024-05-05 15:57] LABS: #Basophils Less than 0.03 10x3/uL (0.0-0.2); #Eosinphils Less than 0.03 10x3/uL (0.0-0.7); %Basophils 0.1 % (0.0-1.0); %Lymphocytes 9.3 % (21.0-51.0); %Monocytes 4.3 % (0.0-10.0); Hematocrit 38.8 % (36.0-47.0); Hemoglobin 12.4 g/dL (12.0-16.0); Mean Corpuscular Hemoglobin 32.9 pg (27.0-31.0); Mean Corpuscular Volume 102.9 fL (78.0-98.0); Mean Platelet Volume 9.3 fL (7.4-10.4); Platelet Count 270 10x3/uL (130-400); RBC Distribution Width 19.4 % (11.5-14.5); Red Blood Cell (RBC) Count 3.77 mill/uL (4.20-5.40)
[2024-05-05] MEDS ORDERED: dilTIAZem 25 MG/5 ML VIAL ONE (16:17)
[2024-05-05 16:20] LABS: INR-International Normal Ratio 1.1; Prothrombin Time 14.1 sec (12.0-14.7)
[2024-05-05 16:25] LABS: Bacteria/HPF None Seen HPF (None Seen); Bilirubin Negative (Negative); Blood, Urine 1+ (Negative); CAUTI Indications for Culture Alt mental st,lethar; Clarity Clear (Clear); Glucose, Urine (Dipstick) Normal (Negative); Ketone, Urine 10 mg/dL (Negative); Leukocyte Negative Leu/uL (Negative); Nitrite Negative (Negative); Protein, Urine (Dipstick) 20 mg/dL (Neg-Trace); Specific Gravity, Urine 1.016 (1.002-1.036); Squamous Epithelial 0-3 HPF (0-3); Urobilinogen Normal mg/dL (Less than 2); WBC/HPF 0-3 HPF (0-3)
[2024-05-05 16:27] LABS: Urine Culture Reflex No No
[2024-05-05 16:28] LABS: ALT (SGPT) 11 U/L (8-55); AST (SGOT) 32 U/L (5-34); Albumin 3.2 g/dL (3.4-4.8); Alkaline Phosphatase 72 U/L (40-110); Anion Gap 16 mmol/L (10-20); BUN (Urea Nitrogen) 18 mg/dL (9.8-20.1); Bilirubin, Total 0.3 mg/dL (0.2-1.2); Calc. Creatinine Clearance 0 mL/min (70-130); Calcium 8.7 mg/dL (7.8-10.44); Carbon Dioxide 19 mmol/L (23-31); Chloride 105 mmol/L (98-107); Estimated GFR 86; Globulin 4.6 g/dL (2.4-3.5); Glucose 130 mg/dL (80-115); Magnesium 1.6 mg/dL (1.6-2.6); Protein, Total 7.8 g/dL (5.8-8.1); Sodium 137 mmol/L (136-145)
[2024-05-05] MEDS ORDERED: dilTIAZem 125 MG, Admixture Fee 1 EACH in Sodium Chloride 0.9% 100 ML IVPB SCH (16:30)
[2024-05-05 16:56] LABS: Influenza A by NAA Not Detected (NotDetected); Influenza B by NAA Not Detected (NotDetected); SARS-CoV-2 NAA Rapid Test Not Detected (NotDetected)
[2024-05-05] MEDS ORDERED: Aspirin 325 MG TAB ONE (19:09)
[2024-05-05] MEDS ORDERED: Potassium Chloride 20 MEQ TAB ONE ×2 (19:09→19:11)
[2024-05-05] MEDS ORDERED: Ondansetron PF 4 MG/2 ML Vial ONE (19:09)
[2024-05-05] MEDS ORDERED: Dexamethasone 10 MG/ML VIAL ONE (19:09)
[2024-05-05] MEDS ORDERED: Magnesium 2 GM/50 ML BAG (IN WATER) ONE (19:10)
[2024-05-05 20:04] LABS: Phosphorus 2.2 mg/dL (2.3-4.7)
[2024-05-05] MEDS: Vancomycin HCl 750 MG in Sodium Chloride 0.9% 250 ML 250 ML IVPB SCH (21:21)
[2024-05-05] MEDS: Potassium Phosphate 30 MMOL in Sodium Chloride 0.9% 250 ML 250 ML IVPB SCH (21:41)
[2024-05-05] MEDS: Potassium Chloride 20 MEQ in Lactated Ringer's 1,000 ML IV SCH (23:18)
[2024-05-05] MEDS: Nicotine 14 MG PATCH TD SCH (23:50)
[2024-05-05] MEDS: Metoprolol Tartrate 5 MG (5 mL) VIAL IVP SCH (23:50)
[2024-05-05] MEDS: Ondansetron PF 4 MG/2 ML Vial IVP PRN (23:57)
[2024-05-06] MEDS ORDERED: Lorazepam 1 MG TAB PO PRN (00:22)
[2024-05-06] MEDS ORDERED: Non-Formulary Item 1 EACH (Fentanyl [Fentanyl] 1 EACH Patch.Td72) TOP PRN (00:22)
[2024-05-06] MEDS ORDERED: Albuterol 2.5 MG (3 mL) NEB NEB PRN (00:23)
[2024-05-06] MEDS ORDERED: Ondansetron ODT 4 MG TAB PO PRN (00:33)
[2024-05-06] MEDS: Vancomycin HCl 500 MG in Sodium Chloride 0.9% 100 ML IVPB SCH (00:40)
[2024-05-06 01:32] LABS: Troponin I 0.268 ng/mL (< 0.028)
[2024-05-06] MEDS: dilTIAZem 125 MG in Sodium Chloride 0.9% 100 ML IVPB SCH (02:43)
[2024-05-06] MEDS: Cefepime 1 GM in Sodium Chloride 0.9% 100 ML IVPB SCH (02:43)
[2024-05-06 02:45] VITALS: BMI 13.0
[2024-05-06 04:53] LABS: Critical Call Chem Troponin I RESULT DECREASING; Troponin I 0.243 ng/mL (< 0.028)
[2024-05-06 04:54] LABS: Anion Gap 14 mmol/L (10-20); BUN (Urea Nitrogen) 15 mg/dL (9.8-20.1); Calc. Creatinine Clearance 47 mL/min (70-130); Calcium 8.2 mg/dL (7.8-10.44); Carbon Dioxide 22 mmol/L (23-31); Chloride 105 mmol/L (98-107); Estimated GFR 97; Glucose 158 mg/dL (80-115); Magnesium 1.9 mg/dL (1.6-2.6); Phosphorus 3.9 mg/dL (2.3-4.7); Potassium 3.7 mmol/L (3.5-5.1); Sodium 137 mmol/L (136-145)
[2024-05-06 05:59] LABS: Vancomycin, Random 14.4 ug/mL (See Comment)
[2024-05-06 06:09] LABS: #Basophils Less than 0.03 10x3/uL (0.0-0.2); #Eosinphils Less than 0.03 10x3/uL (0.0-0.7); %Monocytes 1.9 % (0.0-10.0); %Neutrophils 87.9 % (42.0-75.0); Hematocrit 35.6 % (36.0-47.0); Hemoglobin 11.7 g/dL (12.0-16.0); Mean Corpuscular HGB CONC 32.9 g/dL (32.0-36.0); Mean Corpuscular Hemoglobin 31.9 pg (27.0-31.0); Mean Platelet Volume 9.3 fL (7.4-10.4); Platelet Count 305 10x3/uL (130-400); RBC Distribution Width 19.2 % (11.5-14.5); Red Blood Cell (RBC) Count 3.67 mill/uL (4.20-5.40)
[2024-05-06] MEDS: Famotidine 20 MG TAB PO SCH (08:35)
[2024-05-06] MEDS: Enoxaparin 30 MG (0.3 mL) SYRINGE SC SCH (08:35)
[2024-05-06] MEDS: Famotidine/PF 20 mg/2ml Vial SLOW IVP SCH (08:36)
[2024-05-06] MEDS: Sacubitril 24MG/Valsartan 26 MG TAB PO SCH (08:37)
[2024-05-06] MEDS: Pantoprazole 40 MG VIAL IVP SCH (08:37)
[2024-05-06] MEDS ORDERED: Vancomycin 1 GM in Premix 1 BAG IVPB SCH (09:00)
[2024-05-06] MEDS: Vancomycin (BATCH) 1.25 GM in Premix 1 BAG IVPB SCH (10:45)
[2024-05-06] MEDS: Atorvastatin Calcium 40 MG TAB PO SCH (21:01)
[2024-05-06] MEDS: fentaNYL 100 mcg/hour Patch TD SCH (21:50)
[2024-05-06] MEDS: oxyCODONE/Acetaminophen 5 mg/325 mg Tablet PO PRN (21:59)
[2024-05-07 05:19] LABS: #Basophils Less than 0.03 10x3/uL (0.0-0.2); #Eosinphils Less than 0.03 10x3/uL (0.0-0.7); %Lymphocytes 11.5 % (21.0-51.0); %Monocytes 8.4 % (0.0-10.0); %Neutrophils 79.8 % (42.0-75.0); Hematocrit 33.7 % (36.0-47.0); Hemoglobin 10.7 g/dL (12.0-16.0); Mean Corpuscular HGB CONC 31.8 g/dL (32.0-36.0); Mean Corpuscular Hemoglobin 32.6 pg (27.0-31.0); Mean Corpuscular Volume 102.7 fL (78.0-98.0); Mean Platelet Volume 9.4 fL (7.4-10.4); Platelet Count 254 10x3/uL (130-400); RBC Distribution Width 19.6 % (11.5-14.5); Red Blood Cell (RBC) Count 3.28 mill/uL (4.20-5.40)
[2024-05-07 05:59] LABS: Anion Gap 14 mmol/L (10-20); BUN (Urea Nitrogen) 15 mg/dL (9.8-20.1); Calc. Creatinine Clearance 48 mL/min (70-130); Calcium 8.2 mg/dL (7.8-10.44); Carbon Dioxide 21 mmol/L (23-31); Chloride 106 mmol/L (98-107); Estimated GFR 97; Glucose 108 mg/dL (80-115); Potassium 3.5 mmol/L (3.5-5.1); Sodium 137 mmol/L (136-145)
[2024-05-07] MEDS: Vancomycin 1 GM in Premix 1 BAG IVPB SCH (09:04)
[2024-05-07] MEDS: dilTIAZem CD 120 MG CAP PO SCH (14:10)
[2024-05-07] MEDS: Apixaban 2.5 MG TAB PO SCH ×2 (14:10→20:00)
[2024-05-07] MEDS: Amoxicillin/Potassium Clav 250 mg/5 ml Oral Suspension PO SCH (21:00)
[2024-05-08 06:23] LABS: #Basophils Less than 0.03 10x3/uL (0.0-0.2); %Basophils 0.2 % (0.0-1.0); %Eosinophils 0.8 % (0.0-10.0); %Lymphocytes 20.5 % (21.0-51.0); %Monocytes 8.4 % (0.0-10.0); %Neutrophils 69.8 % (42.0-75.0); Hematocrit 35.8 % (36.0-47.0); Hemoglobin 11.4 g/dL (12.0-16.0); Mean Corpuscular HGB CONC 31.8 g/dL (32.0-36.0); Mean Corpuscular Hemoglobin 33.2 pg (27.0-31.0); Mean Corpuscular Volume 104.4 fL (78.0-98.0); Mean Platelet Volume 9.3 fL (7.4-10.4); Platelet Count 254 10x3/uL (130-400); RBC Distribution Width 19.1 % (11.5-14.5); Red Blood Cell (RBC) Count 3.43 mill/uL (4.20-5.40)
[2024-05-08 06:45] LABS: Anion Gap 14 mmol/L (10-20); BUN (Urea Nitrogen) 17 mg/dL (9.8-20.1); Calc. Creatinine Clearance 44 mL/min (70-130); Calcium 8.5 mg/dL (7.8-10.44); Carbon Dioxide 20 mmol/L (23-31); Chloride 106 mmol/L (98-107); Estimated GFR 96; Glucose 95 mg/dL (80-115); Potassium 3.6 mmol/L (3.5-5.1); Sodium 136 mmol/L (136-145)
[2024-05-08] MEDS: dilTIAZem CD 120 MG CAP PO SCH (08:29)
[2024-05-08] MEDS ORDERED: dilTIAZem CD 120 MG CAP PO SCH (09:00)
[2024-05-09] MEDS: Famotidine/PF 20 mg/2ml Vial SLOW IVP SCH (08:06)
[2024-05-09] MEDS: Furosemide 40 MG TAB PO SCH (08:30)
[2024-05-09] MEDS: Famotidine 20 MG TAB PO SCH (08:31)
[2024-05-09 09:00] VITALS: BP 148/79; TEMP 97.6
[2024-05-09] MEDS: Lorazepam 1 MG TAB PO SCH (13:21)
[2024-05-09] MEDS ORDERED: Lorazepam 1 MG TAB PO SCH (21:00)
== END 2024-05-09 14:18 | disposition hospice, home (50) | DRG 280 ==
LOC: ERS 12:52 → ERHOLD 18:39 → IMCU/EMU 22:33 → T4-B 05-08 18:30
PROVIDERS: ADMIT Internal Medicine; ATTEND Internal Medicine
DX: I11.0 Hypertensive heart disease with heart failure (principal); I50.41 Acute combined systolic (congestive) and diastolic (congestive) heart failure; I21.A1 Myocardial infarction type 2; J18.9 Pneumonia, unspecified organism; C34.90 Malignant neoplasm of unspecified part of unspecified bronchus or lung; C79.31 Secondary malignant neoplasm of brain; R64 Cachexia; J44.0 Chronic obstructive pulmonary disease with (acute) lower respiratory infection; Z68.1 Body mass index [BMI] 19.9 or less, adult; Z51.5 Encounter for palliative care; E78.5 Hyperlipidemia, unspecified; F17.210 Nicotine dependence, cigarettes, uncomplicated; E87.6 Hypokalemia; R31.9 Hematuria, unspecified; R62.7 Adult failure to thrive; I50.9 Heart failure, unspecified; I48.0 Paroxysmal atrial fibrillation; Z79.899 Other long term (current) drug therapy; Z90.710 Acquired absence of both cervix and uterus; Z79.82 Long term (current) use of aspirin
CPT/HCPCS: 36415; 70450; 71045; 71275; 74177; 80048; 80053; 80202; 81001; 82805; 83605; 83735; 83880; 84100; 84484; 85025; 85610; 85730; 87040; 93005; 93306; 96361; 96365; 96367; 96375; 96376; C9113; J0692; J1100; J1642; J1650; J2405; J3370; J3370-JW; J3475; J3480; J3490; J7050; J7120; Q9967; S0028